=== PATIENT | male | born 1980 | race Caucasian/White ===

== ENCOUNTER 2019-03-07 10:48 | Emergency (ER) | payer SELFPAY ==
[~2019-03-07] VITALS: Ht 193 cm; Wt 93.0 kg
[2019-03-07 10:55] VITALS: BP 141/96
--- NOTE | 2019-03-07 10:55 | NUR ---
ED Nurse Note: pt brought by SHANNAN for medical clearance. pt c/o heart burn. no cp or sob. skin warm to touch. no open wound noted. AAO x4. respirations even and non-labored noted. will wait for the further order.
--- NOTE | 2019-03-07 11:08 | Emergency Room Report ---
History of Present Illness General Chief Complaint: Medical Clearance Source: Patient Present Illness HPI Patient is a 39-year-old male presents after increased belching and abdominal pressure. He reports having multiple episodes of this over the past few days. He had previously been taking antacids for this. He states that he had prior history of smoking. He had onset several days ago.Patient was here for medical clearance for incarceration. He is currently in [employer] custody. Prior history of nephrectomy. Allergies: Coded Allergies: No Known Allergies (Unverified , 03/07/19) Patient History Past Medical History: see triage record Reviewed Nursing Documentation: PMH: Agreed; PSxH: Agreed Nursing Documentation-PMH Past Medical History: No History, Except For Review of Systems All Other Systems: limited Physical Exam Vital Signs Date Time Temp Pulse Resp B/P (MAP) Pulse Ox O2 Delivery O2 Flow Rate FiO2 03/07/19 10:54 97.3 78 18 141/96 (111) 95 Room Air Sp02 EP Interpretation: reviewed, normal General Appearance: normal inspection, well appearing, no apparent distress, alert, GCS 15 Head: atraumatic ENT: normal ENT inspection, hearing grossly normal, normal voice Neck: normal inspection, full range of motion, supple, no bony tend Respiratory: normal inspection, lungs clear, normal breath sounds, no respiratory distress, no retraction, no wheezing Cardiovascular #1: regular rate, rhythm, no edema Gastrointestinal: normal inspection, normal bowel sounds, non tender, soft, no guarding, no hernia Genitourinary: no CVA tenderness Musculoskeletal: normal inspection, back normal, normal range of motion Neurologic: normal inspection, alert, responsive, speech normal Psychiatric: normal inspection, judgement/insight normal, mood/affect normal Medical Decision Making Diagnostic Impression: Primary Impression: GERD (gastroesophageal reflux disease) ER Course Patient presented for chest pain. Differential diagnosis included but was not limited to acute coronary syndrome, pulmonary embolism, pneumonia, aortic dissection, shingles, pneumothorax, aortic dissection, esophageal rupture, pericarditis. EKG showed normal sinus rhythm without acute st changes. CXR showed normal cardiac size without infiltrate or effusion Patient appears to have chest pain which is GI in na Patient is medically cleared for booking. Patient was discharged with [employer] custody. At the time of discharge patient was awake alert and oriented x3 without any acute distress. EKG Diagnostic Results Rate: normal Rhythm: NSR ST Segments: no acute changes Last Vital Signs Date Time Temp Pulse Resp B/P (MAP) Pulse Ox O2 Delivery O2 Flow Rate FiO2 03/07/19 10:54 97.3 78 18 141/96 (111) 95 Room Air Status: improved Disposition: HOME, SELF-CARE Condition: Stable Scripts Omeprazole (OMEPRAZOLE) 20 Mg Capsule. 20 MG ORAL DAILY, #30 CAP Prov: Shan Richardson MD 03/07/19 Shan Richardson MD Mar 07, 2019 11:08
[2019-03-07] MEDS ORDERED: OMEPRAZOLE20 M2 ORAL (11:29)
[2019-03-07 11:55] VITALS: BP 133/88
--- NOTE | 2019-03-07 11:55 | NUR ---
ER DISCHARGE NOTE: Patient is cleared to be discharged per ERMD, pt is aox4, on room air, with stable vital signs. pt was given dc and prescription instructions, pt was able to verbalize understanding, pt id band removed without complications. pt is able to ambulate with steady gait. pt took all belongings. accompany with [facility].
--- NOTE | 2019-03-07 12:09 | Diagnostic Imaging Report ---
Indication: Shortness of breath Technique: One view of the chest Comparison: none Findings: Lungs and pleural spaces are clear. Heart size is normal Impression: No acute process
== END 2019-03-07 11:55 | disposition home or self-care (01) ==
LOC: EMR 11:22
DX: K21.9 Gastro-esophageal reflux disease without esophagitis (principal); Z90.5 Acquired absence of kidney
CPT/HCPCS: 71045; 93005; 99283